=== PATIENT | female | born 1985 | race African-American/Black ===

== ENCOUNTER 2016-08-11 11:40 | Emergency (ER) | payer BC ==
[~2016-08-11] VITALS: Ht 175.3 cm; Wt 61.2 kg
[~2016-08-11 11:40] MED LIST: IBUPROFEN 600600 M1; PRENATA CHEWAB1 EACH; PROVENTIL HFA6.7 G1; SINGULAIR 10 MG10 M1
[2016-08-11 11:59] LABS: URINE BILIRUBIN NEGATIVE (Negative); URINE BLOOD 1+ (Negative); URINE COLOR YELLOW; URINE GLUCOSE-RANDOM* NEGATIVE (Negative); URINE KETONES NEGATIVE (Negative); URINE LEUKOCYTES-REFLEX NEGATIVE (Negative); URINE PROTEIN (DIPSTICK) 1+ (Negative); URINE UROBILINOGEN 0.2 E.U./dl (0.2-1.0)
[2016-08-11 12:47] LABS: AMORPHOUS PHOSPHATES Many /LPF (None Seen); CASTS None Seen /LPF (None Seen); SQUAMOUS >10 Many /LPF (0-3); URINE RBC 3-10 Few /HPF (0-2); URINE WBC-REFLEX None Seen /HPF (0-5)
[2016-08-11] MEDS ORDERED: DEXTROAMP-AMPHE25 MG PO (12:48)
[2016-08-11 12:50] VITALS: BP 129/75
[2016-08-11 13:24] LABS: ABSOLUTE NEUTROPHILS 4.5 thou/uL (1.4-8.2); BASOPHILS 0.7 % (0.0-2.0); EOSINOPHILS 2.2 % (0.0-3.0); HEMATOCRIT 39.7 % (37.0-47.0); HEMOGLOBIN 13.3 gm/dL (12.0-15.0); LYMPHOCYTES 29.5 % (24.0-44.0); MCH 29.9 pg (26.0-34.0); MCHC 33.4 g/dL (28.0-37.0); MCV 89.4 fL (80.0-100.0); MONOCYTES 7.7 % (1.0-8.0); PLATELET COUNT 339 thou/uL (150-400); POLYS 59.9 % (36.0-66.0); RBC 4.44 mil/uL (4.20-5.00); RDW 15.3 % (10.5-14.5); WBC 7.5 thou/uL (4.0-11.0)
[2016-08-11 13:26] LABS: MANUAL DIFF NO
[2016-08-11 13:38] LABS: CALCIUM 9.1 mg/dL (8.5-10.1); CREATININE 0.9 mg/dL (0.6-1.0); POTASSIUM 4.1 mmol/L (3.5-5.1)
[2016-08-12 18:06] LABS: CHLAMYDIA TRACHOMATIS-PCR Negative (Negative); NEISSERIA GONORRHEA-PCR Negative (Negative)
== END 2016-08-11 14:35 | disposition home or self-care (01) ==
LOC: ER 11:40
PROVIDERS: Physician Assistant
DX: N93.8 Other specified abnormal uterine and vaginal bleeding (principal); J30.2 Other seasonal allergic rhinitis; Z88.1 Allergy status to other antibiotic agents

== ENCOUNTER 2016-11-03 08:46 | Emergency (ER) | payer BC ==
[~2016-11-03] VITALS: Ht 175.3 cm; Wt 77.1 kg
[~2016-11-03 08:46] MED LIST changes: +DEXTROAMP-AMPHE25 MG PO
[2016-11-03] MEDS ORDERED: IBUPROFEN 600600 M1 PO (09:51)
[2016-11-03 10:13] VITALS: BP 121/76
== END 2016-11-03 10:15 | disposition home or self-care (01) ==
LOC: ER 08:46
DX: S60.221A Contusion of right hand, initial encounter (principal); Z88.1 Allergy status to other antibiotic agents; Z98.890 Other specified postprocedural states; W22.01XA Walked into wall, initial encounter; Y93.89 Activity, other specified; Y92.89 Other specified places as the place of occurrence of the external cause; Y99.8 Other external cause status

== ENCOUNTER 2018-02-28 06:52 | Emergency (ER) | payer BC ==
[~2018-02-28] VITALS: Ht 177.8 cm; Wt 65.8 kg
[~2018-02-28 06:52] MED LIST changes: +GUAIFEN-CODEINE10 ML PO; +IBUPROFEN 600600 M1 PO
[2018-02-28 06:53] VITALS: BP 104/77
[2018-02-28] MEDS ORDERED: NORFLEX100 MG PO (07:28)
[2018-02-28] MEDS ORDERED: NAPROSYN500 MG PO (07:28)
== END 2018-02-28 07:46 | disposition home or self-care (01) ==
LOC: ER 06:52
DX: S23.29XA Dislocation of other parts of thorax, initial encounter (principal); Z88.1 Allergy status to other antibiotic agents; Z88.2 Allergy status to sulfonamides; X50.1XXA Overexertion from prolonged static or awkward postures, initial encounter; Y92.89 Other specified places as the place of occurrence of the external cause; Y99.0 Civilian activity done for income or pay; Y99.8 Other external cause status

== ENCOUNTER 2019-04-29 04:21 | Emergency (ER) | payer OTHER ==
[~2019-04-29] VITALS: Ht 177.8 cm; Wt 72.6 kg
[~2019-04-29 04:21] MED LIST changes: +NAPROSYN500 MG PO; +NORFLEX100 MG PO
[2019-04-29] MEDS ORDERED: VISTARIL 25 MG25 M1 PO (04:36)
[2019-04-29] MEDS ORDERED: CYCLOBENZAPRINE10 MG PO (04:37)
[2019-04-29] MEDS ORDERED: ONDANSETRON ODT8 MG PO (04:42)
[2019-04-29] MEDS ORDERED: PEPCID20 MG PO (04:42)
[2019-04-29 05:08] VITALS: BP 121/74
== END 2019-04-29 05:04 | disposition home or self-care (01) ==
LOC: ER 04:21
DX: R10.13 Epigastric pain (principal); F41.9 Anxiety disorder, unspecified; Z88.1 Allergy status to other antibiotic agents; Z88.2 Allergy status to sulfonamides

== ENCOUNTER 2019-10-21 15:14 | Emergency (ER) | payer BC ==
[~2019-10-21] VITALS: Ht 177.8 cm; Wt 72.1 kg
[~2019-10-21 15:14] MED LIST changes: +CYCLOBENZAPRINE10 MG PO; +ONDANSETRON ODT8 MG PO; +PEPCID20 MG PO; +VISTARIL 25 MG25 M1 PO
[2019-10-21 15:16] VITALS: BP 121/88
[2019-10-21] MEDS ORDERED: NORCO 5-325 TA1 EAC2 PO (15:34)
[2019-10-21] MEDS ORDERED: CLEOCIN HCL150 MG PO (15:34)
== END 2019-10-21 16:11 | disposition home or self-care (01) ==
LOC: ER 15:14
DX: K04.7 Periapical abscess without sinus (principal); R51 Headache; F12.90 Cannabis use, unspecified, uncomplicated; Z88.2 Allergy status to sulfonamides; Z88.1 Allergy status to other antibiotic agents; Z98.890 Other specified postprocedural states